=== PATIENT | male | born 1950 | race Caucasian/White ===

== ENCOUNTER → 2017-04-22 | Outpatient (CLI) | payer OTHER ==
[~2017-04-22] MED LIST: ASPI81TA28 PO; LPT/20 PO; LSN25 PO; OMEG10007 PO; PLV75 PO; SPECCAP4 PO; TPRSR/25 PO
[2017-04-22 09:33] LABS: BASO % 0.4 %; EOS % 2.9 %; HEMATOCRIT 40.9 % (42-52); IG% 0.2 %; LYMPH % 20.6 %; LYMPH ABS # 0.92 K/uL (1.2-3.4); MEAN CELL VOLUME 92.3 fL (80-100); MEAN CORPUSCULAR HEMOGLOBIN 30.5 pg (25-34); MONO % 9.4 %; NEUT % 66.5 %; PLATELET COUNT 218 K/uL (130-400); RED BLOOD COUNT 4.43 M/uL (4.7-6.1); WHITE BLOOD COUNT 4.47 K/uL (4.8-10.8)
[2017-04-22 09:34] LABS: BASO ABS # 0.02 K/uL (0-0.2); COMPLETE YES
[2017-04-22 10:11] LABS: ALT/SGPT 29 U/L (12-78); BLOOD UREA NITROGEN 12 mg/dl (7-18); BUN/CREATININE RATIO 15.1 (10-20); CALCIUM 9.2 mg/dl (8.5-10.1); CARBON DIOXIDE 27 mmol/L (21-32); CHLORIDE 106 mmol/L (98-107); CHOLESTEROL 160 mg/dl (0-200); CREATININE 0.81 mg/dl (0.60-1.40); GLUCOSE 93 mg/dl (70-99); POTASSIUM 4.1 mmol/L (3.5-5.1); SODIUM 138 mmol/L (136-145); TRIGLYCERIDES 31 mg/dl (0-150); VERY LOW DENSITY LIPOPROT CALC 6 mg/dl
[2017-04-22 10:22] LABS: ALB/GLOB RATIO 1.1 (0.9-2); ALKALINE PHOSPHATASE 47 U/L (45-117); AST/SGOT 27 U/L (15-37); CHOLESTEROL/HDL RATIO 2.1; HDL CHOLESTEROL 78 mg/dl; LDL CHOLESTEROL CALCULATED 76 mg/dl
== END | disposition home or self-care (01) ==
LOC: C.LAB1850 08:42
PROVIDERS: ATTEND Internal Medicine
DX: I25.10 Atherosclerotic heart disease of native coronary artery without angina pectoris (principal); Z11.59 Encounter for screening for other viral diseases

== ENCOUNTER → 2018-03-29 | Outpatient (CLI) | payer OTHER ==
[~2018-03-29] MED LIST changes: +CARV6.252 PO; +GLUC10007 PO; -LPT/20 PO; -PLV75 PO; +ROSU20TA PO; -SPECCAP4 PO; -TPRSR/25 PO
[2018-03-29 10:07] VITALS: BP 100/67; PULSE 60; TEMP 36.4; O2SAT 97
--- NOTE | 2018-03-29 10:55 | Radiation Oncology Follow-Up ---
Radiation Oncology Follow-Up Date of Visit Mar 29, 2018. Reason For Visit to discuss a prostate seed implant and have an arch study Radiation Completion Date none, was seen in consultation on 01-26-2018 Diagnosis (1) Prostate cancer Status: Acute Onset Date: 01/05/2018 Location: Right lobe of the prostate Histology Subtype: Adenocarcinoma Stage: ll (A clinical and biopsy stage.) Permanent Comment: Abnormal digital rectal exam, clinical stage T2a PSA 3.610 Status post ultrasound-guided biopsies January 05, 2018 Adenocarcinoma the prostate [place] 3+3 Prostate volume 28 Prostate density 0.128 Last Edited By: Mansi Padilla on Jan 26, 2018 10:30 History of Present Illness is a 67-year-old gentleman who was recently diagnosed with prostate cancer. 01/20/2016 --- PSA --- 2.750. 04/22/2017 --- PSA --- 3.430. 07/07/2017 --- PSA --- 3.610. 08/29/2017 --- urology consultation with Dr. Alford --- examination by Dr. Alford revealed a palpable nodule in the right lobe, cT2a. Dr. Alford recommended a transrectal ultrasound-guided biopsy of the prostate gland. 01/05/2018 --- TRUS-guided biopsy of prostate gland, prostate volume 28 cc --- pathology revealed prostate cancer involving 5/14 cores. Marcos 3+3 = 6 is highest Marcos score. No perineural invasion identified. 01/12/2018 --- follow-up evaluation with Dr. Alford --- Dr. Alford recommended bone scan and radiation oncology consultation and referral to robotic surgeon. 01/18/18 --- bone scan --- negative for metastatic disease. Interim History All options of treatment were reviewed with patient. He was seen in urology. He had contemplated active surveillance. He is now decided he would like to go forward with a prostate seed implant. We have previously discussed with him that he would need an arch study. I spoke with him on the phone and this visit was scheduled as well as the arch study. He was contacted by our therapists and instructions were given for the preparation for the arch study. Today he gave an AUA score of 8. He completed and expanded prostate cancer index composite for clinical practice and gave a score of 0 of 12 and urinary incontinence symptoms. He gave a score of 1 of 12 and urinary irritation symptoms. He gives score of 1 of 12 and bowel symptoms. He gives score of 1 of 12 and sexual symptoms. He gave a score of 5 of 12 and hormonal vitality symptoms. His total was 8 of 60. 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 Adhesives (Verified Allergy, Unknown, SOME BANDAIDES IRRITATE SKIN, RASH, 01/26/18) Penicillins (Verified Allergy, Unknown, RASH- TOLERATED ANCEF, 01/26/18) Home Medications Scheduled Aspirin (Aspirin Ec), 81 MG PO DAILY Carvedilol (Coreg), 1 TAB PO BID Fish Oil (Wilton-3), 1 CAP PO TID Glucosamine Sulfate (Glucosamine), 1,000 MG PO DAILY Lisinopril (Lisinopril), 2.5 MG PO QAM Rosuvastatin Calcium (Crestor), 1 TAB PO HS Review of Systems Gastrointestinal: Symptoms: WNL Oral: Symptoms: No Problems Respiratory: Symptoms: Dry Cough Other Respiratory: occ dry cough Urinary: Symptoms: Nocturia Comments: nocturia 1 - 2 times Skin: Symptoms: No Problems Other Skin Symptoms: dry skin Physical Exam Vital Signs Date Time Temp Pulse Resp B/P (MAP) Pulse Ox O2 Delivery O2 Flow Rate FiO2 03/29/18 10:07 36.4 60 16 100/67 97 Fatigue: None General Appearance: no apparent distress Eyes: normal inspection, EOMI ENT: normal ENT inspection, hearing grossly normal Respiratory/Chest: lungs clear, no respiratory distress, no accessory muscle use Cardiovascular: regular rate, rhythm, no gallop, no murmur Extremities: no pedal edema Neurologic/Psychiatric: no motor/sensory deficits, alert, + pertinent finding ( Flat affect) Skin: warm/dry Pain Management Patient Reports Pain: No Side: Bilateral Patient Preferred Pain Scale: 0 - 10 Initial Pain Intensity: 0.0 Pain Management Plan He denies pain therefore requires no pain management. Laboratory Laboratory Results: were reviewed Pathology Pathology Results: were reviewed, and pertinent findings noted in HPI Imaging Imaging Studies: were reviewed, and pertinent findings noted in HPI Assessment & Plan (Attending) Assessment: The patient is a 68-year old gentleman with low risk prostate cancer ([place] 3 + 3, PSA 3.61, cT1c). We previously saw him in consultation and he was interested in pursuing treatment. He is now returning for follow-up evaluation to discuss prostate seed implantation. Again, we did review the options for treatment including active surveillance, surgery and radiation therapy. Following the completion of our visit, the patient will undergo a arch study evaluation today. Treatment Options: 1. Active surveillance. 2. Radical prostatectomy 3. Radiation therapy Plan: Proceed with arch study and call patient with results. If patient appropriate candidate for arch study, schedule patient for prostate seed implant in coordination with Dr. Alford's office. Rationale/Explanation of Treatment: We did discuss active surveillance for this patient. As per NCCN guideline, active surveillance would be a meaningful and effective way of monitoring his prostate cancer. We explained to the patient that active surveillance entails annual digital rectal exams as well as PSA every 6-12 months as well as a repeat biopsy in 1 year with consideration of repeat biopsies in the future as well. We explained that we think this is a viable option at this point for the patient. We then briefly discussed the role of radical prostatectomy, explained that both radiation therapy and surgery are both good options for the patient. We deferred any further discussion of surgical intervention to urology to discuss the benefits and disadvantages as well as possible toxicity. We then further went into discussion regarding the role of external beam radiation therapy for treatment of prostate cancer. We explained that side effects for external beam radiation therapy include, but not limited to, radiation proctitis, radiation cystitis, urinary toxicity including hematuria and urgency/obstructive related symptoms, bladder toxicity, rectal toxicity including rectal bleeding and rectal urgency, bowel perforation, bowel obstruction, intra-abdominal adhesions, decreased sexual function, impotency, anejaculation, retrograde ejaculation, bleeding with ejaculation, incontinence, fistula formation, fatigue and secondary malignancy. We explained that external beam radiation therapy may complicate further surgical procedures necessary in the treated region. We explained the treatment plan and treatment process as well overall. We explained that the patient will need placement of gold seed markers for localizing the prostate each day for radiation therapy. During our conversation, I did also explain that the patient could be a candidate for hypofractionated radiation therapy. I did review the current evidence-based medicine (including the published phase III randomized controlled trials) regarding hypofractionated radiation therapy for the prostate gland. I did explain to the patient that follow-up is limited to 5-7 years however the data currently showed no evidence of inferior outcomes with respect to prostate cancer specific mortality and/or recurrence. Additionally, I explained to the patient that currently, the randomized data show no inferiority with respect to urinary, gastrointestinal and sexual side effects from hypofractionated radiation therapy in comparison to standard fractionation. At the given time, both standard fractionation and hypofractionation are both options for the patient. We then went on to discuss the role of prostate seed implantation and low risk prostate cancer. We explained to the patient that prostate seed implantation may offer a more aggressive form of therapy and that it can be combined with external beam radiation therapy. We also explained to the patient that he may have more pronounced urinary obstructive symptoms after the completion of treatment which may require an indwelling Rign catheter if the patient has chronic obstructive symptoms. We explained that side effects for radiation therapy include, but not limited to, radiation proctitis, radiation cystitis, urinary toxicity including hematuria and urgency/obstructive related symptoms, bladder toxicity, rectal toxicity including rectal bleeding and rectal urgency, bowel perforation, bowel obstruction, intra-abdominal adhesions, decreased sexual function, impotency, anejaculation, retrograde ejaculation, bleeding with ejaculation, incontinence, fistula formation, fatigue and secondary malignancy. We then went to further detail regarding the procedure itself and the need for preoperative clearance by his primary care physician and anesthesiology. Lastly, we addressed the risk for complications as it is a surgical procedure with general sedation. We did also discuss the placement of SpaceOAR hydrogel for utilization with radiation therapy for treatment of prostate cancer. We did review the evidence based literature and the potential benefit with reducing rectal toxicity from radiation therapy. We did review the potential options for placing the hydrogel spacer including having it done as an outpatient procedure as well as being done in the operative room. We did explain reviewed the risks include, but are not limited to: pain associated with SpaceOAR hydrogel injection; pain or discomfort associated with SpaceOAR hydrogel; needle penetration of the bladder, prostate, rectal wall, rectum, or urethra; injection of SpaceOAR hydrogel into bladder, prostate, rectal wall, rectum, or urethra; local inflammatory reactions; infection; injection of air, fluid, or SpaceOAR hydrogel intravascularly; urinary retention; rectal mucosal damage, ulcers, necrosis; bleeding; constipation; and rectal urgency. The patient understands and would be willing to undergo the treatment potentially. The patient had multiple questions which were answered to their full satisfaction. Thank you for allowing us to participate in the care of this patient. This chart was completed in part utilizing [employer] Speech Voice Recognition software. Attempts were made to minimize the grammatical errors, random word insertions, pronoun errors and incomplete sentences. Any formal questions or concerns about the content, text or information contained within the body of this dictation should be directly addressed to the provider for clarification. Siobhan Her MD Department of Radiation Oncology [facility] Total Time In Follow-Up I spent 15 minutes speaking to the patient in performing examination. I spent 15 minutes reviewing information and completing this note. [place] Total Time (Attending) In Follow-Up I spent 20 minutes examining and counseling the patient. I spent 15 minutes completing this note. ANALYTICS LEADER Copy To Gilbert Murdock M.D.; Gerhard Alford MD
== END | disposition home or self-care (01) ==
LOC: C.ONC 09:56
PROVIDERS: ATTEND Urology
DX: C61 Malignant neoplasm of prostate (principal)